=== PATIENT | male | born 1995 | race Caucasian/White ===

== ENCOUNTER 2017-05-17 18:38 | Emergency (ER) | payer OTHER ==
[~2017-05-17] VITALS: Ht 190.5 cm; Wt 117.9 kg
[2017-05-17 18:48] VITALS: BP 158/85
--- NOTE | 2017-05-17 18:52 | NUR ---
PT AMBULATED TO CHAIR A. Addendum: 05/17/17 at 1853 by [facility] PT AMBULATED TO CHAIR B.
--- NOTE | 2017-05-17 18:55 | NUR ---
LEFT SIDE NOSE PAIN X 2 WEEKS, DENIES ANY FEVERS/CHILLS. DENIES INJURY, DENIES N/V/D; SKIN IS PINK/WARM/DRY; AAOX4 WITH EVEN AND STEADY GAIT; LUNGS CLEAR BL; HR EVEN AND REGULAR; PT DENIES ANY FEVER, CP, SOB, OR COUGH AT THIS TIME; PATIENT STATES PAIN OF 10/10 AT THIS TIME; VSS; ER MD MADE AWARE OF PT STATUS.
[2017-05-17] MEDS ORDERED: CLINDAMYCIN 600 MG/4 ML VIAL IM ONE (19:50)
[2017-05-17] MEDS ORDERED: IBUPROFEN 800 MG TAB PO ONE (19:50)
--- NOTE | 2017-05-17 20:21 | NUR ---
Patient discharged with v/s stable. Written and verbal after care instructions given and explained. Patient alert, oriented and verbalized understanding of instructions. Ambulatory with steady gait. All questions addressed prior to discharge. ID band removed. Patient advised to follow up with PMD. Rx of CLINDAMYCIN AND MOTRIN given. Patient educated on indication of medication including possible reaction and side effects. Opportunity to ask questions provided and answered.
[2017-05-17 20:23] VITALS: BP 133/80
== END 2017-05-17 20:21 | disposition home or self-care (01) ==
LOC: MED 18:38
DX: J34.0 Abscess, furuncle and carbuncle of nose (principal)
CPT/HCPCS: 96372; 99283; J3490

== ENCOUNTER 2018-04-22 11:26 | Emergency (ER) | payer OTHER ==
[~2018-04-22] VITALS: Ht 185.4 cm; Wt 124.7 kg
[2018-04-22 11:33] VITALS: BP 124/76
--- NOTE | 2018-04-22 12:36 | NUR ---
PT AMBULATES TO BED 2
--- NOTE | 2018-04-22 13:00 | NUR ---
PT IS A 22 Y/O MALE WHO PRESENTS TO THE ED C/O ABSCESS. PT STATES THAT IT STARTED X5 DAYS AGO, REPORTS REDNESS AND PAIN. PT REPORTS 10/10 ACHING COCCYX PAIN THAT DOES NOT RADIATE. PT DENIES CP, SOB, N/V/D. PT AWKAE AND ALERT, RR EVEN/UNLABORED. PT REPOSITIONED FOR COMFORT, BED IN LOWEST POSITION. ER MD DR. WU NOTIFIED. WILL CONTINUE TO MONITOR. HX--SIMILAR ABSCESS LAST YR RX---NONE
[2018-04-22] MEDS ORDERED: LIDOCAINE 2% 1000 MG/50 ML VIAL INJ ONE (13:15)
--- NOTE | 2018-04-22 13:15 | NUR ---
I&D DONE BY DR WU.
[2018-04-22 14:08] VITALS: BP 124/76
--- NOTE | 2018-04-22 14:08 | NUR ---
CLEAN THE PT'S WOUND WITH SALINE AND DRESSED USING STERILE GAUZE, NON ADHERANT DRESSING AND MEDICAL TAPE.
--- NOTE | 2018-04-22 14:08 | NUR ---
Patient discharged with v/s stable. Written and verbal after care instructions given and explained. Patient alert, oriented and verbalized understanding of instructions. Ambulatory with steady gait. All questions addressed prior to discharge. ID band removed. Patient advised to follow up with PMD. Rx of MOTRIN, BACTRIM & TRAMADOL given. Patient educated on indication of medication including possible reaction and side effects. Opportunity to ask questions provided and answered.
== END 2018-04-22 14:08 | disposition home or self-care (01) ==
LOC: MED 11:26
DX: L05.01 Pilonidal cyst with abscess (principal)
CPT/HCPCS: 10080; 99283; J2001

== ENCOUNTER 2018-04-25 22:50 | Emergency (ER) | payer OTHER ==
[~2018-04-25] VITALS: Ht 190.5 cm; Wt 115.7 kg
--- NOTE | 2018-04-25 22:53 | NUR ---
PT TAKEN TO BED 11
[2018-04-25 22:55] VITALS: BP 154/88
--- NOTE | 2018-04-25 23:04 | NUR ---
PATIENT PRESENTS TO ED FOR RECHECK. PT HAD I & D ON R BUTTOCK X4 DAY AGO. PT CURRENTLY NOT TAKING MEDICATIONS, PT LOST PRESCRIPTIONS AND SURGEON REFERRAL NKA DENIES N/V/D; SKIN IS PINK/WARM/DRY; AAOX4 WITH EVEN AND STEADY GAIT; LUNGS CLEAR BL; HR EVEN AND REGULAR; PT DENIES ANY FEVER, CP, SOB, OR COUGH AT THIS TIME; PATIENT STATES PAIN OF 5/10 AT THIS TIME; VSS; PATIENT POSITIONED FOR COMFORT; HOB ELEVATED; BEDRAILS UP X2; BED DOWN. ER MD MADE AWARE OF PT STATUS.
--- NOTE | 2018-04-25 23:36 | NUR ---
Dr. Enriquez evaluating patient at bedside.
--- NOTE | 2018-04-25 23:51 | NUR ---
Patient discharged with v/s stable. Written and verbal after care instructions given and explained. Patient alert, oriented and verbalized understanding of instructions. Ambulatory with steady gait. All questions addressed prior to discharge. ID band removed. Patient advised to follow up with PMD. Rx of BACTRIM AND MOTRIN given. Patient educated on indication of medication including possible reaction and side effects. Opportunity to ask questions provided and answered.
== END 2018-04-25 23:51 | disposition home or self-care (01) ==
LOC: MED 22:50
DX: Z48.01 Encounter for change or removal of surgical wound dressing (principal)
CPT/HCPCS: 99283